=== PATIENT | female | born 1990 | race Caucasian/White ===

== ENCOUNTER 2021-12-12 10:23 | Outpatient (CLI) | payer BC ==
--- NOTE | 2021-12-12 12:12 | Ultrasound Report ---
ULTRASOUND BREAST LEFT LIMITED, 12/12/2021 CLINICAL INFORMATION / INDICATION: N64.59. Left breast images, pain, swelling TECHNIQUE: Targeted ultrasound evaluation was performed of the area of interest. COMPARISON: None. FINDINGS: Examination of the area of concern in the upper left breast shows 3 minimal hypoechoic area s measuring no more than 4 mm with mild internal echoes. No definite shadowing or vascularity are see n. These are thought very likely to represent benign complicated cyst. IMPRESSION: Probable minimal benign complicated cysts are seen in the area of concern. Follow up recommendation: 1. Clinical correlation to patient's complaint. If this is considered a significant concern, mammogra phy could be performed despite patient's age. 2. Left breast ultrasound in 6 months BI-RADS Category 3: PROBABLY BENIGN. Followup in 6 months. A normal or "negative" report should not preclude biopsy or follow-up of a clinically suspicious find ing. Signer Name: Mehul Rebolledo MD Signed: 12/12/2021 12:08 PM Workstation Name: [email or web address]
== END 2021-12-12 10:24 | disposition home or self-care (01) ==
LOC: US 10:23
PROVIDERS: ATTEND Advanced Practice Midwife
DX: N64.59 Other signs and symptoms in breast (principal)